=== PATIENT | female | born 1935 | race Caucasian/White ===

== ENCOUNTER 2020-01-28 04:41 | Day surgery (SDC) | payer OTHER ==
[2020-01-26 19:33] VITALS: BMI 28.5
[~2020-01-28 04:41] MED LIST: BSS (NA/CA/MG/K) BALANCED SALT SOLUTION OPHTH SOLN 15 ML BOTTLE OS ONE; CHONDROITIN SU A/HYALUR SOD 1 KIT IO ONE; EPINEPHrine/PF 1 MG/1 ML (1:1,000) AMPULE SQ ONE; LIDOCAINE HCL 1% PRESERVATIVE FREE - 30ML VIAL IO ONE; POVIDONE-IODINE 5% OPHTHALMIC PREP 30 ML SOLUTION OS ONE; TETRACAINE 0.5% OPHTH SOLN 2 ML BOTTLE OS ONE; TOBRAMYCIN/DEXAMETHASONE OPHTH. OINTMENT 1 TUBE OS ONE
[2020-01-28] MEDS ORDERED: TETRACAINE 0.5% OPHTH SOLN 2 ML BOTTLE ONE (06:33)
[2020-01-28] MEDS ORDERED: POVIDONE-IODINE 5% OPHTHALMIC PREP 30 ML SOLUTION ONE (06:33)
[2020-01-28] MEDS ORDERED: EPINEPHrine/PF 1 MG/1 ML (1:1,000) AMPULE ONE (06:33)
[2020-01-28] MEDS ORDERED: LIDOCAINE HCL/PF 1% SDV 5ML VIAL ONE (06:33)
[2020-01-28] MEDS ORDERED: CHONDROITIN SU A/HYALUR SOD 1 KIT ONE (06:37)
[2020-01-28] MEDS ORDERED: TOBRAMYCIN/DEXAMETHASONE OPHTH. OINTMENT 1 TUBE ONE (06:37)
[2020-01-28] MEDS ORDERED: ACETAMINOPHEN 325 MG TABLET (FP) PO PRN (07:30)
[2020-01-28] MEDS ORDERED: PHENYLEPHRINE 2.5% OPHTH SOLN 15 ML BOTTLE OP SCH (07:30)
[2020-01-28] MEDS ORDERED: TROPICAMIDE 1% OPHTH SOLN 15 ML BOTTLE OP SCH (07:30)
[2020-01-28] MEDS ORDERED: KETOROLAC TROMETHAMINE 0.5% EYE DROP 1 DROP DROPS OP SCH (07:30)
[2020-01-28] MEDS ORDERED: CIPROFLOXACIN HCL 0.3% OPHTH 2.5ML BOTTLE OP SCH (07:30)
[2020-01-28] MEDS ORDERED: MIDAZOLAM HCL 2 MG/2 ML SINGLE DOSE VIAL ONE ×2 (09:13→11:31)
[2020-01-28] MEDS ORDERED: TROPICAMIDE 1% OPHTH SOLN 15 ML BOTTLE ONE (09:23)
[2020-01-28] MEDS ORDERED: CIPROFLOXACIN HCL 0.3% OPHTH 2.5ML BOTTLE ONE (09:23)
[2020-01-28] MEDS ORDERED: KETOROLAC TROMETHAMINE 0.5% EYE DROP 1 DROP DROPS ONE (09:23)
[2020-01-28] MEDS ORDERED: PHENYLEPHRINE 2.5% OPHTH SOLN 15 ML BOTTLE OS ONE ×3 (09:25→09:45)
[2020-01-28] MEDS ORDERED: TROPICAMIDE 1% OPHTH SOLN 15 ML BOTTLE OS ONE ×3 (09:25→09:45)
[2020-01-28] MEDS ORDERED: CIPROFLOXACIN 0.3% EYE DROPS 5 ML BOTTLE OS ONE ×3 (09:25→09:45)
[2020-01-28] MEDS ORDERED: LIDOCAINE HCL/PF 2% SDV 5ML VIAL ONE (09:34)
[2020-01-28] MEDS ORDERED: BUPIVACAINE HCL/PF 0.75% 10 ML VIAL ONE (09:34)
[2020-01-28] MEDS ORDERED: KETOROLAC TROMETHAMINE 0.5% EYE DROP 1 DROP DROPS OS ONE ×2 (09:35→09:45)
--- NOTE | 2020-01-28 09:37 | HP ---
- Patient Scheduled date of Surgery: 01/28/20 Scheduled Surgical Procedure: Phacoemulsification and cataract extraction with PCIOL Affected Eye: Left Chief Complaint (Indication for surgery): Decreased vision affecting ADLs - Ocular History Other Eye History: Other (ARMD , macular hole OD) Eye Medications: vigamox Previous Eye Surgery: s/p ce/pciol OD - Medical History Illnesses: Hypertension Current Medications: Ambulatory Orders Amlodipine Besylate 5 mg PO PRN 10/26/15 Glucosam/Chond/Collagen/Hyalur [Glucosamine Chondroitin Cap] 1 each PO PRN 10/26/15 Multivit-Min/Iron/Folic/Lutein [Centrum Silver Women Tablet] 1 each PO DAILY 10/26/15 Allergies/Adverse Reactions: Allergies Allergy/AdvReac Type Severity Reaction Status Date / Time No Known Drug Allergies Allergy Verified 10/27/15 07:00 Ocular Examination - Best Corrected Visual Acuity Distance: Right eye: CF Distance: Left eye: 20/60 - External/Slit Lamp Examination Abnormalities: K linear branching lesions - Intraocular Pressure Intraocular Pressure - Right eye: 16 Intraocular Pressure-Left eye: 16 - Lens Lens: 2-3 + NS 1-2+ cortical change - Vitreous/Retina Vitreous/Retina: C:D 02 pigmentary change v/p wnl - Special Examination M - Right eye: plano-1.00 x 013 M - Left eye: +1.50-3.25 x 165 K - Right eye: 45/46.75 100 K - Left eye: 45.75/48 x 075 AL - Right eye: 22.34 AL - Left eye: 22.65 IOL bag: +21.0 AUOOTO IOL sulcus: +20.0 MN60AC IOL AC: +18.0 MTA 4UO - Impression Impression: Cataract Left Eye - Plan Plan: Phacoemulsification and cataract extraction - IOL Left eye Post-hospital care will be provided in office on: 01/29/20
--- NOTE | 2020-01-28 09:38 | HP ---
History & Physical Update - History History: No Change - Physical Physical: No Change - Assessment Assessment: No Change - Plan Plan: No Change (H and P reviewed from Dr. Cortez , no changes)
[2020-01-28] MEDS ORDERED: TETRACAINE 0.5% OPHTH SOLN 2 ML BOTTLE OS ONE (10:03)
[2020-01-28] MEDS ORDERED: POVIDONE-IODINE 5% OPHTHALMIC PREP 30 ML SOLUTION OS ONE (10:05)
[2020-01-28] MEDS ORDERED: BSS (NA/CA/MG/K) BALANCED SALT SOLUTION OPHTH SOLN 15 ML BOTTLE OS ONE (10:10)
[2020-01-28] MEDS ORDERED: CHONDROITIN SU A/HYALUR SOD 1 KIT IO ONE (10:10)
[2020-01-28] MEDS ORDERED: LIDOCAINE HCL 1% PRESERVATIVE FREE - 30ML VIAL IO ONE (10:10)
[2020-01-28] MEDS ORDERED: EPINEPHrine/PF 1 MG/1 ML (1:1,000) AMPULE SQ ONE (10:20)
[2020-01-28] MEDS ORDERED: TOBRAMYCIN/DEXAMETHASONE OPHTH. OINTMENT 1 TUBE OS ONE (10:30)
--- NOTE | 2020-01-28 10:36 | OP ---
Ophthalmology Operative Note Pre-Operative Diagnosis: Cataract Affected Eye: Left Operation: Phacoemulsification and cataract extraction with PCIOL Findings: NS cataract left eye Post-Operative Diagnosis: Same as Pre-op Adult Health Clinical Nurse Specialist: None Anesthesiologist: Emanuel Lara Anesthesia: Topical Specimens Removed: none Estimated blood loss: < 1cc Drains & Tubes with Location: none Operative Report Dictated: Yes
[2020-01-28 11:21] VITALS: BP 141/72; PULSE 68; TEMP 97.8
--- NOTE | 2020-02-03 20:44 | OP ---
DATE OF OPERATION: 01/28/2020 PREOPERATIVE DIAGNOSIS: Nuclear sclerotic cataract, left eye. POSTOPERATIVE DIAGNOSIS: Nuclear sclerotic cataract, left eye. PROCEDURE: Phacoemulsification and cataract extraction with insertion of posterior chamber intraocular lens, left eye. SURGEON: Ashli Arauz MD HEARING HEALTH TECHNICIAN: None. ANESTHESIA: Topical. ANESTHESIOLOGIST: Michelle Hill CRNA OPERATIVE PROCEDURE: The patient received Tetracaine eye drops and was gently sedated and prepped and draped in the usual sterile fashion so as to expose only the left eye. Ophthalmic Betadine was instilled into the inferior fornix and lashes were taped out of the surgical field. An eyelid speculum was placed into the left eye. Paracentesis was made in inferior temporal clear cornea at the limbus. Then 0.5 mL of nonpreserved lidocaine 1% was injected into the anterior chamber and then 1 mL of dilute epinephrine 1:10,000 was injected into the anterior chamber to improve pupillary dilation. Viscoelastic material was instilled into the anterior chamber via the paracentesis. A 2.4-mm keratome blade was then used to create the main incision in temporal clear cornea at the limbus. A continuous curvilinear capsulorrhexis was performed using a cystotome and Utrata forceps. Hydrodissection of the lens cortex was performed using BSS on a cannula until the nucleus was noted to be freely rotating. The phacoemulsification tip was then inserted via the main wound and used to scope 2 perpendicular grooves into the lens nucleus. The nucleus was cracked into 4 quadrants. Each quadrant was lifted out of the capsule into the iris plane and individually phacoemulsified. The remaining cortical material was then aspirated using the irrigation/aspiration port. The capsular bag was inflated using ProVisc and a preloaded AcrySof lens model [id number] power +20.5 diopters was injected into the capsular bag. It was centered using a Sinskey hook. The residual viscoelastic material was removed from the anterior chamber using irrigation and aspiration. The wound edges were hydrated using BSS. The wound was tested for leakage and was found to be watertight. Tobradex ointment was placed in the eye, and the speculum was removed from the eye, and the eyelid was closed. A sterile dressing and shield were placed over the eye. The patient was transferred to the recovery room in stable condition, told to follow up in 1 day. ASHLI ARAUZ M.D. [id number] MTDD
== END 2020-01-28 11:44 | disposition home or self-care (01) ==
LOC: JASU-SURG 04:41
PROVIDERS: ATTEND Ophthalmology
PROC: 08RK3JZ Replacement of Left Lens with Synthetic Substitute, Percutaneous Approach (ICD-10-PCS; principal; 2020-01-28 09:30)
DX: H25.12 Age-related nuclear cataract, left eye (principal)

== ENCOUNTER 2020-01-31 10:31 | Emergency (ER) | payer OTHER ==
--- NOTE | 2020-01-31 11:06 | TELE ---
HPI Do you have fever,cough or shortness of breath?: No - General History Source: Patient, Family Past History - Travel History Traveled outside of the country in the last 30 days: No Close contact w/someone who was outside of country & ill: No - Medical History Allergies/Adverse Reactions: Allergies Allergy/AdvReac Type Severity Reaction Status Date / Time No Known Drug Allergies Allergy Verified 01/28/20 09:33 Home Medications: Ambulatory Orders Amlodipine Besylate 5 mg PO DAILY 10/26/15 Glucosam/Chond/Collagen/Hyalur [Glucosamine Chondroitin Cap] 1 each PO DAILY 10/26/15 Multivit-Min/Iron/Folic/Lutein [Centrum Silver Women Tablet] 1 each PO DAILY 10/26/15 Anemia: No Asthma: No Cancer: No Cardiac Disorders: No CVA: No COPD: No CHF: No Dementia: No Diabetes: No GI Disorders: No Disorders: No HTN: Yes Hypercholesterolemia: No Liver Disease: No Seizures: No Thyroid Disease: No - Psycho-Social/Smoking History Smoking History: Never smoked Review of Systems - Review of Systems Able to Perform ROS?: Yes Comments:: 01/31/20 11:04 CONSTITUTIONAL: Absent: fever, chills, diaphoresis, generalized weakness, malaise, loss of appetite HEENT: Absent: rhinorrhea, nasal congestion, throat pain, throat swelling, difficulty swallowing, mouth swelling, ear pain, eye pain, visual Changes CARDIOVASCULAR: Absent: chest pain, loss of consciousness, palpitations, irregular heart rate, peripheral edema RESPIRATORY: Absent: cough, shortness of breath, dyspnea with exertion, orthopnea, wheezing, stridor, hemoptysis GASTROINTESTINAL: Absent: abdominal pain, abdominal distension, nausea, vomiting, diarrhea, constipation, melena, hematochezia SKIN: Absent: rash, itching, pallor NEUROLOGIC: Absent: headache, focal weakness or paresthesias, dizziness, unsteady gait, seizure, mental status changes, bladder or bowel incontinence PSYCHIATRIC: Absent: anxiety, depression, suicidal or homicidal ideation, hallucinations. Limited Romanian proficient: No *Physical Exam - Physical Exam 01/31/20 11:04 GENERAL: Well developed, well nourished. Awake and alert. No acute distress. HEENT: Normocephalic, atraumatic. PERRLA, EOMI. NECK: Supple. Full ROM. PULMONARY: No evidence of respiratory distress. EXTREMITIES: No cyanosis. SKIN: Warm and dry. Normal capillary refill. No rashes. No jaundice. NEUROLOGICAL: Alert, awake, appropriate. PSYCHIATRIC: Cooperative. Good eye contact. Appropriate mood and affect. - Medical Decision Making 01/31/20 11:04 The patient is an 84-year-old female who presents to telehealth for COVID testing. She states she is traveling out of the country on Saturday and needs a test 10 days prior to travel. She has no current symptoms at this time. She states she is in her usual state of health. A/P: Need for COVID testing Patient appears well on telehealth, no acute distress. COVID order placed. Will refer patient to [facility]. Isolation precautions given. Discharge Diagnosis at time of Disposition: Counseled about COVID-19 virus infection - Referrals Follow-up Referral(s): Immanuel Bassett MD [Primary Care Provider] - - Patient Instructions
== END 2020-01-31 11:07 | disposition home or self-care (01) ==
LOC: JVIRT 10:31
DX: Z11.59 Encounter for screening for other viral diseases (principal)
CPT/HCPCS: Q3014-GT; U0003

== ENCOUNTER 2020-02-09 09:52 | Emergency (ER) | payer OTHER ==
--- NOTE | 2020-02-09 12:15 | TELE ---
HPI Do you have fever,cough or shortness of breath?: No - General Reason For Visit: VIRTUAL VISIT Past History - Travel History Traveled outside of the country in the last 30 days: No Close contact w/someone who was outside of country & ill: No - Medical History Allergies/Adverse Reactions: Allergies Allergy/AdvReac Type Severity Reaction Status Date / Time No Known Drug Allergies Allergy Verified 01/28/20 09:33 Home Medications: Ambulatory Orders Amlodipine Besylate 5 mg PO DAILY 10/26/15 Glucosam/Chond/Collagen/Hyalur [Glucosamine Chondroitin Cap] 1 each PO DAILY 10/26/15 Multivit-Min/Iron/Folic/Lutein [Centrum Silver Women Tablet] 1 each PO DAILY 10/26/15 Anemia: No Asthma: No Cancer: No Cardiac Disorders: No CVA: No COPD: No CHF: No Dementia: No Diabetes: No GI Disorders: No Disorders: No HTN: Yes Hypercholesterolemia: No Liver Disease: No Seizures: No Thyroid Disease: No - Psycho-Social/Smoking History Smoking History: Never smoked Review of Systems - Review of Systems Able to Perform ROS?: Yes Comments:: 02/09/20 13:27 CONSTITUTIONAL: Absent: fever, chills, diaphoresis, generalized weakness, malaise, loss of appetite HEENT: Absent: rhinorrhea, nasal congestion, throat pain, throat swelling, difficulty swallowing, mouth swelling, ear pain, eye pain, visual Changes CARDIOVASCULAR: Absent: chest pain, loss of consciousness, palpitations, irregular heart rate, peripheral edema RESPIRATORY: Absent: cough, shortness of breath, dyspnea with exertion, orthopnea, wheezing, stridor, hemoptysis GASTROINTESTINAL: Absent: abdominal pain, abdominal distension, nausea, vomiting, diarrhea, constipation, melena, hematochezia SKIN: Absent: rash, itching, pallor NEUROLOGIC: Absent: headache, focal weakness or paresthesias, dizziness, unsteady gait, seizure, mental status changes, bladder or bowel incontinence PSYCHIATRIC: Absent: anxiety, depression, suicidal or homicidal ideation, hallucinations. Limited Armenian proficient: No *Physical Exam - Physical Exam 02/09/20 13:27 GENERAL: Well developed, well nourished. Awake and alert. No acute distress. HEENT: Normocephalic, atraumatic. PERRLA, EOMI. NECK: Supple. Full ROM. PULMONARY: No evidence of respiratory distress. EXTREMITIES: No cyanosis. SKIN: Warm and dry. Normal capillary refill. No rashes. No jaundice. NEUROLOGICAL: Alert, awake, appropriate. PSYCHIATRIC: Cooperative. Good eye contact. Appropriate mood and affect. - Medical Decision Making 02/09/20 12:14 Left message with patient's son to call back when he is with his parents. 02/09/20 13:28 The patient is an 84-year-old female presenting to telehealth for COVID testing. She states that her flight home was canceled, out of the country, so she needs a new test prior to her flight next week on Saturday. She has no symptoms at this time. She is also requesting antibody test to see if she had COVID in the past. She is currently is in her normal state of health. A/P: Need for COVID testing No acute distress on telehealth exam. We will send to [facility] for retesting of swab and antibodies Isolation precautions given. Discharge Diagnosis at time of Disposition: Counseled about COVID-19 virus infection - Referrals Follow-up Referral(s): Immanuel Bassett MD [Primary Care Provider] - - Patient Instructions
== END 2020-02-09 13:29 | disposition home or self-care (01) ==
LOC: JVIRT 09:52
DX: Z11.59 Encounter for screening for other viral diseases (principal); Z01.84 Encounter for antibody response examination
CPT/HCPCS: 36415; 86769; C9803; Q3014-GT; U0003